=== PATIENT | female | born 1985 | race African-American/Black ===

== ENCOUNTER 2019-08-29 10:47 | Inpatient (IN) | payer OTHER ==
--- NOTE | 2019-08-29 11:05 | BHS.RME ---
Substance Use & Tx History - Substance Use History Opiates (Heroin) Substance amount: 2 bundles Frequency of use: Daily Substance route: Injection (ex: intravenous or skin popping) Date of Last Use: 08/29/19 Alcohol Substance amount: 1 pint vodka Frequency of use: Daily Substance route: Oral Date of Last Use: 08/29/19 (8am) Cocaine (Crack) Substance amount: 1 gram Frequency of use: Daily Substance route: Smoking Date of Last Use: 08/28/19 Cannabis (Synthetic) Substance amount: $30 Frequency of use: Daily Substance route: Smoking Date of Last Use: 08/28/19 Cannabis Substance amount: $25 Frequency of use: Daily Substance route: Smoking Date of Last Use: 08/28/19 Nicotine Substance amount: 1 pack Frequency of use: Daily Substance route: Smoking Date of Last Use: 08/29/19 Physical/Psych/Mental Status - Behavior General Behavior: Increased activity (restlessness, agitation) - Cooperativeness Cooperativeness: Cooperative - Thinking Thought Processes: Tight, Logical, Goal Directed Thought content: Future oriented - Physical Health Problems Is patient presently having any pain?: No Does patient presently have any injuries (include location): No Does patient currently have a fever: No Is patient : No COWS - Scale Resting Pulse: 0= [place] 80 or Below Sweatin= No chills or Flushing Restless Observation: 1= Difficult to Sit Still Pupil Size: 1= Pupils >than Normal Bone or Joint Aches: 1= Mild Discomfort Runny Nose/ Eye Tearin= Nasal Congestion GI Upset > 30mins: 1= Stomach Cramp Tremor Observation: 1= Tremor [place], Not Seen Yawning Observation: 1= 1-2x During Session Anxiety or Irritability: 1=Feels Anxious/Irritable Goose Flesh Skin: 0=Smooth Skin (not in withdrawal used this morning) COWS Score: 8 CIWA Nausea/Vomitin-Mild Nausea/No Vomiting (not in withdrawal now used 8 am today) Muscle Tremors: 1-None Visible, but [place] Anxiety: 4-Mod. Anxious/Guarded Agitation: 4-Moderately Restless Paroxysmal Sweats: 2 Orientation: 0-Oriented Tacttile Disturbances: 0-None Auditory Disturbances: 0-None Visual Disturbances: 0-None Headache: 1-Very Mild CIWA-Ar Total Score: 13
--- NOTE | 2019-08-29 13:30 | HP ---
COWS - Scale Resting Pulse: 0= [place] 80 or Below Sweatin= No chills or Flushing Restless Observation: 1= Difficult to Sit Still Pupil Size: 1= Pupils >than Normal Bone or Joint Aches: 1= Mild Discomfort Runny Nose/ Eye Tearin= Nasal Congestion GI Upset > 30mins: 1= Stomach Cramp Tremor Observation: 1= Tremor [place], Not Seen Yawning Observation: 1= 1-2x During Session Anxiety or Irritability: 1=Feels Anxious/Irritable Goose Flesh Skin: 0=Smooth Skin (not in withdrawal used this morning) COWS Score: 8 CIWA Score Nausea/Vomitin-Mild Nausea/No Vomiting (not in withdrawal now used 8 am today) Muscle Tremors: 1-None Visible, but [place] Anxiety: 4-Mod. Anxious/Guarded Agitation: 4-Moderately Restless Paroxysmal Sweats: 2 Orientation: 0-Oriented Tacttile Disturbances: 0-None Auditory Disturbances: 0-None Visual Disturbances: 0-None Headache: 1-Very Mild CIWA-Ar Total Score: 13 - Admission Criteria OASAS Guidelines: Admission for Medically Managed Detox: Requires at least one of the followin. CIWA greater than 12 2. Seizures within the past 24 hours 3. Delirium tremens within the past 24 hours 4. Hallucinations within the past 24 hours 5. Acute intervention needed for co occurring medical disorder 6. Acute intervention needed for co occurring psychiatric disorder 7. Severe withdrawal that cannot be handled at a lower level of care (continued vomiting, continued diarrhea, abnormal vital signs) requiring intravenous medication and/or fluids 8. Admitting History and Physical - Admission Chief Complaint: "I want to stop drinking and I need to detox from alcohol and drugs." History of Present Illness: 33 year old female with history of alcohol dependence with withdrawal, opioid dependence with withdrawal, crack use disorder, cannabis use disorder and k2 use disorder. Alcohol: 2 pints vodka daily started at age 16 and last used 08/29/19 8AM Heroin: 2 bundles IN started using at age 32 and last used 08/27/19 Crack: $100 daily smoking and started age 33 and last used 08/28/19 Marijuana: 4x/wk $25 per episode smoking since age 18 and last used 08/29/19 K2: $30 daily smoking since age 33 and last used 08/29/19 PMH: None Psurg: None Psych: None Homelessness and not in halfway system No legal issues. Patient meets criteria due to blackout 1 month and and 2 weeks ago. She's failed multiple times at [facility] in 2019 and 07/2019. She is at high risk for relapse due to poor recovery environment. She is seeking detox and then [facility] rehab. History Source: Patient Limitations to Obtaining History: No Limitations - Past Surgical History Past Surgical History: Yes: None - Smoking History Smoking history: Current every day smoker Have you smoked in the past 12 months: Yes Aproximately how many cigarettes per day: 30 - Alcohol/Substance Use Hx Alcohol Use: Yes History of Substance Use: reports: Cocaine, Heroin, Marijuana - Social History Usual Living Arrangement: Yes: Alone Do you think of yourself as: Straight/Heterosexual ADL: Independent Occupation: unemployed History of Recent Travel: No Admission [facility] Exam Limitations: No Limitations - Ebola screening Have you traveled outside of the country in the last 21 days: No Have you had contact with anyone from an Ebola affected area: No Have you been sick,other than usual withdrawal symptoms: No Do you have a fever: No - Review of Systems Constitutional: Chills, Loss of Appetite, Unintentional Wgt. Loss EENT: reports: No Symptoms Reported Respiratory: reports: Shortness of Breath Cardiac: reports: No Symptoms Reported GI: reports: No Symptoms Reported : reports: No Symptoms Reported Musculoskeletal: reports: No Symptoms Reported Integumentary: reports: No Symptoms Reported Neuro: reports: No Symptoms reported Endocrine: reports: No Symptoms Reported Hematology: reports: No Symptoms Reported Psychiatric: reports: Judgement Intact, Orientated x3, Agitated, Anxious Other Systems: Reviewed and Negative Patient History - Patient Medical History Hx Anemia: No Hx Asthma: No Hx Chronic Obstructive Pulmonary Disease (COPD): No Hx Cancer: No Hx Cardiac Disorders: No Hx Congestive Heart Failure: No Hx Hypertension: No Hx Hypercholesterolemia: No Hx Pacemaker: No HX Cerebrovascular Accident: No Hx Seizures: No Hx Dementia: No Hx Diabetes: No Hx Gastrointestinal Disorders: No Hx Liver Disease: No Hx Genitourinary Disorders: No Hx Sexually Transmitted Disorders: No Hx Renal Disease (ESRD): No Hx Thyroid Disease: No Hx Human Immunodeficiency Virus (HIV): No Hx Hepatitis C: No Hx Depression: No Hx Suicide Attempt: No Hx Bipolar Disorder: No Hx Schizophrenia: No - Patient Surgical History Past Surgical History: No - PPD History Previous Implant?: Yes Documented Results: Negative w/o proof Implanted On Prior [facility] Admission?: No Date: 06/08/19 Results: negative PPD to be Administered?: Yes - Reproductive History Last Menstrual Period: 08/13/19 Patient : No - Smoking Cessation Smoking history: Current every day smoker Have you smoked in the past 12 months: Yes Aproximately how many cigarettes per day: 30 Hx Chewing Tobacco Use: No Initiated information on smoking cessation: Yes 'Breaking Loose' booklet given: 08/29/19 - Substances abused Alcohol Substance route: Oral Frequency: Daily Amount used: 2 pints vodka Age of first use: 16 Date of last use: 08/29/19 (8am) Heroin Substance route: Inhalation Amount used: 2 bundles Age of first use: 32 Date of last use: 08/27/19 Crack Substance route: Smoking Amount used: $100 Age of first use: 33 Date of last use: 08/29/19 Marijuana/Hashish Substance route: Smoking Frequency: 3-6 times per week Amount used: $25 Age of first use: 18 Date of last use: 08/29/19 K2/Spice Amount used: $30 Age of first use: 33 Date of last use: 08/29/19 Admission Physical Exam [facility] - Physical General Appearance: Yes: Mild Distress, Tremorous, Irritable, Sweating HEENTM: Yes: EOMI, Hearing grossly Normal, Normal ENT Inspection, Normocephalic, Normal Voice, JIN, Pharynx Normal, Tm's normal Respiratory: Yes: Chest Non-Tender, Lungs Clear, Normal Breath Sounds, No Respiratory Distress, No Accessory Muscle Use Neck: Yes: No masses,lesions,Nodules, Supple, Trachea in good position Breast: Yes: Breast Exam Deferred Cardiology: Yes: Regular Rhythm, Regular Rate, S1, S2 Abdominal: Yes: Non Tender, Flat, Soft, Increased Bowel Sounds, Protuberent Genitourinary: Yes: Within Normal Limits Back: Yes: Normal Inspection Musculoskeletal: Yes: full range of Motion, Gait Steady, Pelvis Stable Extremities: Yes: Normal Capillary Refill, Normal Inspection, Normal Range of Motion, Non-Tender Integumentary: Yes: Normal Color, Warm Lymphatic: Yes: Within Normal Limits - Diagnostic (1) Alcohol dependence with withdrawal Current Visit: Yes Status: Acute (2) Opioid dependence with withdrawal Current Visit: Yes Status: Acute (3) Cocaine use disorder Current Visit: Yes Status: Acute (4) Cannabis use disorder, mild, abuse Current Visit: Yes Status: Acute (5) Synthetic cannabis-induced anxiety disorder Current Visit: Yes Status: Acute (6) Synthetic cannabis-induced anxiety disorder Current Visit: Yes Status: Acute (7) Homeless Current Visit: Yes Status: Acute Cleared for Admission [facility] - Detox or Rehab [facility] Level of Care: Medically Managed Detox Regimen/Protocol: Librium Claeared for Rehab Admission: No Screened but not Admitted - Documentation of Visit Screened but not Admitted: No Breathalyzer - Breathalyzer Breathalyzer: 0.03 Urine Drug Screen - Test Device Lot number: [id number] Expiration date: 02/05/21 - Control Is test valid?: Yes - Results Drug screen NEGATIVE: No Urine drug screen results: REGGIE-Cocaine, MTD-Methadone, BZO-Benzodiazepines Inpatient Rehab Admission - Rehab Decision to Admit Inpatient rehab admission?: No
[2019-08-29] MEDS ORDERED: MENTHOL/PHENOL 1 EACH UD MM PRN (13:48)
[2019-08-29] MEDS ORDERED: MAGNESIUM HYDROX 2400MG/30ML ORAL SUSPENSION 30 ML CUP PO PRN (13:48)
[2019-08-29] MEDS ORDERED: ONDANSETRON *ODT* 4 MG TABLET SL ONE (13:48)
[2019-08-29] MEDS ORDERED: MAG HYDROX/AL HYDROX/SIMETH 30 ML UNIT-DOSE CUP PO PRN (13:48)
[2019-08-29] MEDS ORDERED: BISMUTH SUBSALICYLATE 262 MG/15 ML BTL PO PRN (13:48)
[2019-08-29] MEDS ORDERED: ACETAMINOPHEN 325 MG TABLET (FP) PO PRN (13:48)
[2019-08-29] MEDS ORDERED: MAGNESIUM CITRATE 300 ML BOTTLE PO PRN (13:48)
[2019-08-29] MEDS ORDERED: NICOTINE POLACRILEX 2 MG GUM BUC PRN (13:48)
[2019-08-29 14:39] VITALS: BMI 31.9
[2019-08-29] MEDS: PRENATAL VITAMINS W/ FOLIC ACID TABLET (FP) PO SCH (15:01)
[2019-08-29] MEDS: chlordiazePOXIDE HCL 25 MG CAPSULE PO PRN (15:01)
[2019-08-29] MEDS: IBUPROFEN 400 MG TABLET (FP) PO PRN (15:01)
[2019-08-29] MEDS: NICOTINE 7 MG/24 HOURS TOPICAL PATCH TD SCH (15:01)
[2019-08-29] MEDS: hydrOXYzine PAMOATE 25 MG CAPSULE (FP) PO SCH ×3 (15:01→22:12)
[2019-08-29] MEDS: chlordiazePOXIDE HCL 25 MG CAPSULE PO SCH ×2 (17:53→22:12)
[2019-08-29] MEDS: ACETAMINOPHEN 325 MG TABLET (FP) PO PRN (17:54)
[2019-08-29 20:57] LABS: HEMATOCRIT 37.2 % (32.4-45.2); HEMOGLOBIN 12.4 GM/dL (10.7-15.3); MCH 28.7 pg (25.7-33.7); MCHC 33.2 g/dl (32.0-36.0); MEAN CELL VOLUME 86.4 fl (80-96); MEAN PLT VOLUME 9.1 fl (7.5-11.1); PLATELET COUNT 421 K/MM3 (134-434); RBC 4.31 M/mm3 (3.60-5.2); WHITE BLOOD COUNT 8.4 K/mm3 (4.0-10.0)
[2019-08-29 21:15] LABS: ALBUMIN 3.8 g/dl (3.4-5.0); BILIRUBIN,TOTAL 0.2 mg/dL (0.2-1); BLOOD UREA NITROGEN 7.7 mg/dL (7-18); CALCIUM 8.9 mg/dL (8.5-10.1); CREATININE 0.8 mg/dL (0.55-1.3); TOT PROT 8.3 g/dl (6.4-8.2)
[2019-08-29] MEDS: THIAMINE HCL 100 MG TABLET (FP) PO SCH (22:11)
[2019-08-29] MEDS: MELATONIN 5 MG TABLETS PO SCH (22:12)
[2019-08-30] MEDS ORDERED: METHADONE HCL 10 MG TABLET PO SCH (06:00)
[2019-08-30] MEDS: hydrOXYzine PAMOATE 25 MG CAPSULE (FP) PO SCH (06:36)
[2019-08-30] MEDS: chlordiazePOXIDE HCL 25 MG CAPSULE PO SCH ×4 (06:36→22:08)
[2019-08-30] MEDS ORDERED: METHADONE HCL 40 MG DISPERSABLE TABLET PO ONE (08:39)
[2019-08-30] MEDS: hydrOXYzine PAMOATE 25 MG CAPSULE (FP) PO PRN (10:23)
[2019-08-30] MEDS: NICOTINE 7 MG/24 HOURS TOPICAL PATCH TD SCH (10:23)
[2019-08-30] MEDS: PRENATAL VITAMINS W/ FOLIC ACID TABLET (FP) PO SCH (10:23)
[2019-08-30] MEDS: IBUPROFEN 400 MG TABLET (FP) PO PRN ×2 (13:08→18:24)
[2019-08-30] MEDS: chlordiazePOXIDE HCL 25 MG CAPSULE PO PRN (13:09)
[2019-08-30] MEDS: METHOCARBAMOL 500 MG TABLET PO PRN ×2 (13:09→22:08)
[2019-08-30] MEDS ORDERED: ONDANSETRON *ODT* 4 MG TABLET SL PRN (13:42)
--- NOTE | 2019-08-30 13:45 | PN ---
S CIWA - CIWA Score Nausea/Vomitin-No Nausea/No Vomiting Muscle Tremors: 2 Anxiety: 2 Agitation: 2 Paroxysmal Sweats: 2 Orientation: 0-Oriented Tacttile Disturbances: 0-None Auditory Disturbances: 0-None Visual Disturbances: 0-None Headache: 0-None Present CIWA-Ar Total Score: 8 BHS Progress Note (SOAP) Subjective: irritable sweats shakes tired interrupted sleep Objective: 08/30/19 13:44 Vital Signs Temperature 96.4 F L 08/30/19 08:57 Pulse Rate 79 08/30/19 08:57 Respiratory Rate 18 08/30/19 08:57 Blood Pressure 98/63 08/30/19 08:57 O2 Sat by Pulse Oximetry (%) 98 08/30/19 06:32 Laboratory Tests 08/29/19 08/29/19 08/29/19 12:52 14:00 14:00 WBC 8.4 RBC 4.31 Hgb 12.4 Hct 37.2 MCV 86.4 MCH 28.7 MCHC 33.2 RDW 16.0 H Plt Count 421 MPV 9.1 Sodium 138 Potassium 4.0 Chloride 104 Carbon Dioxide 26 Anion Gap 8 BUN 7.7 Creatinine 0.8 Est GFR (CKD-EPI)AfAm 113.86 Est GFR (CKD-EPI)NonAf 98.24 Random Glucose 90 Calcium 8.9 Total Bilirubin 0.2 AST 23 ALT 35 Alkaline Phosphatase 69 Total Protein 8.3 H Albumin 3.8 POC Urine HCG, Qual Negative Syphilis Serology 08/29/19 14:00 WBC RBC Hgb Hct MCV MCH MCHC RDW Plt Count MPV Sodium Potassium Chloride Carbon Dioxide Anion Gap BUN Creatinine Est GFR (CKD-EPI)AfAm Est GFR (CKD-EPI)NonAf Random Glucose Calcium Total Bilirubin AST ALT Alkaline Phosphatase Total Protein Albumin POC Urine HCG, Qual Syphilis Serology Non-reactive labs noted aaox3 ambulating no acute distress Assessment: 08/30/19 13:44 withdrawals Plan: continue detox increase fluids
[2019-08-30] MEDS: THIAMINE HCL 100 MG TABLET (FP) PO SCH (22:09)
[2019-08-30] MEDS: MELATONIN 5 MG TABLETS PO SCH (22:09)
[2019-08-31] MEDS: chlordiazePOXIDE HCL 25 MG CAPSULE PO SCH ×4 (05:58→22:02)
[2019-08-31] MEDS ORDERED: METHADONE HCL 40 MG DISPERSABLE TABLET PO SCH (06:00)
[2019-08-31] MEDS: METHADONE HCL 40 MG DISPERSABLE TABLET PO SCH (06:01)
[2019-08-31] MEDS: ACETAMINOPHEN 325 MG TABLET (FP) PO PRN ×2 (06:01→16:38)
[2019-08-31] MEDS: PRENATAL VITAMINS W/ FOLIC ACID TABLET (FP) PO SCH (10:06)
[2019-08-31] MEDS: NICOTINE 7 MG/24 HOURS TOPICAL PATCH TD SCH (10:06)
--- NOTE | 2019-08-31 11:01 | PN ---
[facility] CIWA - CIWA Score Nausea/Vomitin-No Nausea/No Vomiting Muscle Tremors: 2 Anxiety: 1-Mildly Anxious Agitation: 2 Paroxysmal Sweats: 2 Orientation: 0-Oriented Tacttile Disturbances: 0-None Auditory Disturbances: 0-None Visual Disturbances: 0-None Headache: 0-None Present CIWA-Ar Total Score: 7 S Progress Note (SOAP) Subjective: low back pain sweats body aches Objective: 08/31/19 11:00 Vital Signs Temperature 98.7 F 08/31/19 09:00 Pulse Rate 68 08/31/19 09:00 Respiratory Rate 17 08/31/19 09:00 Blood Pressure 118/58 L 08/31/19 09:00 O2 Sat by Pulse Oximetry (%) 98 08/31/19 05:50 Laboratory Tests 08/29/19 08/29/19 08/29/19 12:52 14:00 14:00 WBC 8.4 RBC 4.31 Hgb 12.4 Hct 37.2 MCV 86.4 MCH 28.7 MCHC 33.2 RDW 16.0 H Plt Count 421 MPV 9.1 Sodium 138 Potassium 4.0 Chloride 104 Carbon Dioxide 26 Anion Gap 8 BUN 7.7 Creatinine 0.8 Est GFR (CKD-EPI)AfAm 113.86 Est GFR (CKD-EPI)NonAf 98.24 Random Glucose 90 Calcium 8.9 Total Bilirubin 0.2 AST 23 ALT 35 Alkaline Phosphatase 69 Total Protein 8.3 H Albumin 3.8 POC Urine HCG, Qual Negative Syphilis Serology 08/29/19 14:00 WBC RBC Hgb Hct MCV MCH MCHC RDW Plt Count MPV Sodium Potassium Chloride Carbon Dioxide Anion Gap BUN Creatinine Est GFR (CKD-EPI)AfAm Est GFR (CKD-EPI)NonAf Random Glucose Calcium Total Bilirubin AST ALT Alkaline Phosphatase Total Protein Albumin POC Urine HCG, Qual Syphilis Serology Non-reactive aaox3 ambulating no acute distress Assessment: 08/31/19 11:00 withdrawals Plan: continue detox increase fluids lidocaine patch daily
[2019-08-31] MEDS: LIDOCAINE 5% TOPICAL PATCH TP SCH (11:22)
[2019-08-31] MEDS: IBUPROFEN 400 MG TABLET (FP) PO PRN (13:15)
[2019-08-31] MEDS: hydrOXYzine PAMOATE 25 MG CAPSULE (FP) PO PRN (17:21)
[2019-08-31] MEDS: METHOCARBAMOL 500 MG TABLET PO PRN (22:02)
[2019-08-31] MEDS: THIAMINE HCL 100 MG TABLET (FP) PO SCH (22:02)
[2019-08-31] MEDS: MELATONIN 5 MG TABLETS PO SCH (22:02)
[2019-08-31] MEDS: LIDOCAINE PATCH REMOVAL MC SCH (22:04)
[2019-09-01] MEDS ORDERED: chlordiazePOXIDE HCL 10 MG CAPSULE PO PRN
[2019-09-01] MEDS: chlordiazePOXIDE HCL 10 MG CAPSULE PO SCH ×3 (06:07→16:52)
[2019-09-01] MEDS: METHADONE HCL 40 MG DISPERSABLE TABLET PO SCH (06:07)
[2019-09-01] MEDS: hydrOXYzine PAMOATE 25 MG CAPSULE (FP) PO PRN ×2 (06:08→22:03)
[2019-09-01] MEDS: IBUPROFEN 400 MG TABLET (FP) PO PRN (06:13)
[2019-09-01] MEDS ORDERED: cloNIDine HCL 0.1 MG TABLET PO ONE (08:34)
--- NOTE | 2019-09-01 10:01 | PN ---
S CIWA - CIWA Score Nausea/Vomitin-No Nausea/No Vomiting Muscle Tremors: 2 Anxiety: 1-Mildly Anxious Agitation: 1-Slight > Activity Paroxysmal Sweats: 1-Minimal [place] Moist Orientation: 0-Oriented Tacttile Disturbances: 0-None Auditory Disturbances: 0-None Visual Disturbances: 0-None Headache: 0-None Present CIWA-Ar Total Score: 5 BHS Progress Note (SOAP) Subjective: feeling better sweats anxiety Objective: 09/01/19 10:00 Vital Signs Temperature 97.7 F 09/01/19 09:16 Pulse Rate 82 09/01/19 09:16 Respiratory Rate 18 09/01/19 09:16 Blood Pressure 126/88 09/01/19 09:16 O2 Sat by Pulse Oximetry (%) 98 09/01/19 05:59 aaox3 ambulating no acute distress Assessment: 09/01/19 10:01 mild withdrawals Plan: continue detox d/c in am
[2019-09-01] MEDS: PRENATAL VITAMINS W/ FOLIC ACID TABLET (FP) PO SCH (10:22)
[2019-09-01] MEDS: NICOTINE 7 MG/24 HOURS TOPICAL PATCH TD SCH (10:22)
[2019-09-01] MEDS: LIDOCAINE 5% TOPICAL PATCH TP SCH (10:22)
[2019-09-01] MEDS: ACETAMINOPHEN 325 MG TABLET (FP) PO PRN (18:05)
[2019-09-01] MEDS: THIAMINE HCL 100 MG TABLET (FP) PO SCH (22:03)
[2019-09-01] MEDS: MELATONIN 5 MG TABLETS PO SCH (22:03)
[2019-09-01] MEDS: METHOCARBAMOL 500 MG TABLET PO PRN (22:03)
[2019-09-01] MEDS: LIDOCAINE PATCH REMOVAL MC SCH (22:05)
[2019-09-02] MEDS ORDERED: chlordiazePOXIDE HCL 10 MG CAPSULE PO SCH (05:00)
[2019-09-02] MEDS: METHADONE HCL 40 MG DISPERSABLE TABLET PO SCH (06:46)
--- NOTE | 2019-09-02 08:33 | DS ---
[facility] Detox Discharge Summary Admission Date: 08/29/19 Discharge Date: 09/02/19 - History Present History: Alcohol Dependence, Cannabis Dependence, Cocaine Dependence, Opioid Dependence - Physical Exam Results Vital Signs: Vital Signs Temperature 98.1 F 09/02/19 07:51 Pulse Rate 79 09/02/19 07:51 Respiratory Rate 18 09/02/19 07:51 Blood Pressure 107/61 09/02/19 07:51 O2 Sat by Pulse Oximetry (%) 98 09/02/19 05:41 Pertinent Admission Physical Exam Findings: Vital Signs Temperature 98.1 F 09/02/19 07:51 Pulse Rate 79 09/02/19 07:51 Respiratory Rate 18 09/02/19 07:51 Blood Pressure 107/61 09/02/19 07:51 O2 Sat by Pulse Oximetry (%) 98 09/02/19 05:41 Laboratory Tests 08/29/19 08/29/19 08/29/19 12:52 14:00 14:00 WBC 8.4 RBC 4.31 Hgb 12.4 Hct 37.2 MCV 86.4 MCH 28.7 MCHC 33.2 RDW 16.0 H Plt Count 421 MPV 9.1 Sodium 138 Potassium 4.0 Chloride 104 Carbon Dioxide 26 Anion Gap 8 BUN 7.7 Creatinine 0.8 Est GFR (CKD-EPI)AfAm 113.86 Est GFR (CKD-EPI)NonAf 98.24 Random Glucose 90 Calcium 8.9 Total Bilirubin 0.2 AST 23 ALT 35 Alkaline Phosphatase 69 Total Protein 8.3 H Albumin 3.8 POC Urine HCG, Qual Negative Syphilis Serology 08/29/19 14:00 WBC RBC Hgb Hct MCV MCH MCHC RDW Plt Count MPV Sodium Potassium Chloride Carbon Dioxide Anion Gap BUN Creatinine Est GFR (CKD-EPI)AfAm Est GFR (CKD-EPI)NonAf Random Glucose Calcium Total Bilirubin AST ALT Alkaline Phosphatase Total Protein Albumin POC Urine HCG, Qual Syphilis Serology Non-reactive aaox3 ambulating no acute distress lungs CTA - Treatment Hospital Course: Detox Protocol Followed, Detoxed Safely, Responded well, Discharged Condition Good, Rehab Referral Accepted - Medication Discharge Medications: Ambulatory Orders Methadone [Dolophine -] 120 mg PO DAILY 08/29/19 - Diagnosis (1) Alcohol dependence with withdrawal Current Visit: Yes Status: Chronic Qualifiers: Complication of substance-induced condition: uncomplicated Qualified Code(s): F10.230 - Alcohol dependence with withdrawal, uncomplicated (2) Cannabis use disorder, mild, abuse Current Visit: Yes Status: Chronic (3) Cocaine use disorder Current Visit: Yes Status: Chronic (4) Synthetic cannabis-induced anxiety disorder Current Visit: Yes Status: Acute (5) Methadone maintenance therapy patient Current Visit: Yes Status: Chronic - AMA Did Patient Leave Against Medical Advice: No
[2019-09-02 09:37] VITALS: BP 144/61; PULSE 76; TEMP 97.9
[2019-09-03] MEDS ORDERED: chlordiazePOXIDE HCL 10 MG CAPSULE PO ONE (05:00)
== END 2019-09-02 12:45 | disposition home or self-care (01) | DRG 773 ==
LOC: YASAS 10:47 → Y6N 14:22
PROVIDERS: ADMIT Allergy & Immunology; ATTEND Allergy & Immunology
PROC: HZ2ZZZZ Detoxification Services for Substance Abuse Treatment (ICD-10-PCS; principal; 2019-08-29)
DX: F10.230 Alcohol dependence with withdrawal, uncomplicated (principal); F11.23 Opioid dependence with withdrawal; F14.20 Cocaine dependence, uncomplicated; F12.20 Cannabis dependence, uncomplicated; F19.20 Other psychoactive substance dependence, uncomplicated; F19.24 Other psychoactive substance dependence with psychoactive substance-induced mood disorder; F19.280 Other psychoactive substance dependence with psychoactive substance-induced anxiety disorder; Z59.0 Homelessness
CPT/HCPCS: 36415; 80053; 81025; 85027